=== PATIENT | female | born 1980 | race Caucasian/White ===

== ENCOUNTER 2019-08-12 16:38 | Inpatient (IN) | payer BC, OTHER ==
[2019-08-12] MEDS ORDERED: Lactated Ringers 1000 ML Bag* 1,000 ML IV ONE (17:03)
[2019-08-12] MEDS ORDERED: Dinoprostone* 10 MG VAG.SUPP VAGINAL ONE (17:03)
[2019-08-12] MEDS ORDERED: Buffered Lidocaine 1% SYRIN* 1 ML/SYRINGE INTRADERM ONE (17:03)
--- NOTE | 2019-08-12 17:33 | HP ---
General Information - Reason for Visit 37-week ripening/IOL for gestational hypertension - General Information Maternal Age: 38 Grav: 1 Para: 0 SAB: 0 IEA: 0 Estimated Due Date: 09/03/19 Determined By: LMP Gestational Age in Weeks/Days: 36 6/7 Maternal Blood Type and Rh: A Positive - Results this Serology/RPR Result: Non-Reactive Rubella Result: Immune HBsAg Result: Negative HIV Result: Negative GBS Culture Result: Negative Past Medical History Delivery History: See Records Delivery History Comment: no prior deliveries Pertinent Past Medical History: See Records Past Medical History Comment: depression/anxiety, hx skull fracture Pertinent Past Surgical History: See Records Past Surgical History Comment: wisdom tooth extraction, rhinoplasty Pertinent Family History: Non-Contributory - Antepartal Records Antepartal Records: Reviewed, Complicated by: - Age 38 at delivery, depression/anxiety on wellbutrin/lexapro, LSIL pap Review of Systems Constitutional: Comfortable CV Complaint: No Respiratory: Shortness of Breath: No Gastrointestinal: No Nausea/Vomiting, Normal Bowel Movement Genitourinary: No Dysuria, No Bleeding, No Leaking Fluid Musculoskeletal: Contractions, Abdominal Pain Neurological: No Headache, No Visual Changes Movement: Normal Exam Allergies/Adverse Reactions: Allergies No Known Allergies Allergy (Verified 08/09/19 09:36) B/P: 151/82, P: 98, R: 20, T: 98.1 - Measurements Height: 5 ft 2 in Weight: 156 lb Weight in lbs: [id number] Body Mass Index (BMI): 28.5 Pre- Weight: 130 lb Weight Gained This : 26 lbs and 0 ozs - Exam Breast: Breast Exam Deferred CVA: No CVA Tenderness Extremities: No Edema Heart: Normal Rhythm/Heart Sounds HEENT: No Significant Findings Lungs: Clear Bilaterally Reflexes: DTR 2+ Thyroid: No Thyromegaly - Abdominal Exam Abdomen Exam: Non-Tender, Fundal Height Consistent with Dates - Ultrasound/Biophysical Profile Ultrasound Status: Not Done Targeted Exam Findings See L&D Outpatient Visit Provider Note for Findings: N/A Estimated Weight: 6 lb by tana's Cervical Exam: Closed Presenting Part: Vertex Membrane Status: Intact Bleeding/Discharge: None EFM Findings - External Monitor Findings Baseline Heart Rate: 135 External Monitor Findings: Accelerations Present, No Pattern of Variable or Late Decelerations, Variability Moderate, Baseline Stable Contractions: Irregular, Mild, 45-90 Seconds Assessment/Plan - Assessment A: IUP at 36 6/7 weeks No evidence of metabolic acidemia GBS negative Gestational hypertension Unfavorable cervix P: Admit to inpatient PARQ discussion re: cervidil placement, Janet agrees Reviewed options for therapeutic rest Will draw CBC, CMP, uric acid and collect urine for UA B/Ps q2h while awake Reassess PRN Anticipate SVB - Obstetrical Risk Factors Obstetrical Risk Factors: Gestational Hypertension - Plan Plan: Cervical Ripening, Admit - Anticipate Vaginal Delivery - Date/Time of Admission Date of Admission: 08/12/19 Time of Admission: 17:30
[2019-08-12 17:45] LABS: ABS Lymphocytes 1.6 10^3/ul (1.0-4.8); ABS Monocytes 0.8 10^3/ul (0-0.8); ABS Neutrophils 6.7 10^3/ul (1.5-7.7); Eosinophil % 0.3 %; Hematocrit 30 % (35-47); Hemoglobin 10.5 g/dL (12.0-16.0); Lymphocyte % 17.6 %; Mean Corpuscular HGB Conc 35 g/dL (31-36); Mean Corpuscular Hemoglobin 30 pg (27-31); Mean Corpuscular Volume 86 fL (80-97); Mean Platelet Volume 7.6 fL (7.4-10.4); Platelet Count 410 10^3/uL (150-450); Red Blood Count 3.46 10^6 /uL (3.70-4.87); Red Cell Distribution Width 14 % (10-15); White Blood Count 9.3 10^3/uL (3.5-10.8)
[2019-08-12 17:50] LABS: Urine Appearance Cloudy; Urine Bilirubin Negative (Negative); Urine Blood Negative (Negative); Urine Color Yellow; Urine Glucose Negative (Negative); Urine Ketones Negative (Negative); Urine Nitrite Negative (Negative); Urine Protein Negative (Negative); Urine Specific Gravity 1.015 (1.010-1.030); Urine Urobilinogen Negative (Negative)
[2019-08-12 17:53] LABS: Urine Bacteria 1+ (Absent); Urine Red Blood Cell Absent (Absent); Urine Squamous Epithelial Cell Present (Absent); Urine White Blood Cell Trace(0-5/hpf) (Absent)
[2019-08-12] MEDS ORDERED: Lactated Ringers 1000 ML Bag* 1,000 ML IV SCH (18:00)
[2019-08-12 18:02] LABS: Albumin 3.3 g/dL (3.2-5.2); Albumin/Globulin Ratio 1.3 (1-3); BUN/Creatinine Ratio 13.6 (8-20); Calcium 8.4 mg/dL (8.6-10.3); EGFR African American 122.6 (>60); EGFR Non-African American 101.3 (>60); Globulin 2.6 g/dL (2-4); Potassium 3.2 mmol/L (3.5-5.0); Total Bilirubin 0.2 mg/dL (0.2-1.0); Total Protein 5.9 g/dL (6.4-8.9); Uric Acid 4.3 mg/dL (2.3-6.6)
[2019-08-12 18:04] LABS: Urine Benzodiazepine Screen None Detected (None Detect); Urine Opiates Screen None Detected (None Detect)
[2019-08-12] MEDS: Escitalopram * 20 MG TABLET PO SCH (18:17)
[2019-08-12] MEDS ORDERED: hydrOXYzine HCL TAB* 50 MG PO ONE (19:59)
[2019-08-12] MEDS ORDERED: Morphine 10 MG/ML VIAL (1 ml) IV ONE (23:30)
--- NOTE | 2019-08-12 23:36 | PN ---
Progress Note - Progress Note Date of Service: 08/12/19 Note: S: Feeling very crampy/uncomfortable. Having difficulty breathing/relaxing body with uterine cramping O: B/P: 138/83, P: 92, R: 20, T: 97.9 FHR: baseline 130, moderate variability, +accelerations, no decelerations UCs: irregular, palpate mild-moderate. VE deferred, cervidil in place x 5 hrs A: IUP at 36 6/7 weeks Category I FHR, no evidence of metabolic acidemia Gestational hypertension P: Recommend IV fluid bolus, Janet agrees Discussed further pain management options, will give morphine IV Reassess PRN Anticipate SVB
--- NOTE | 2019-08-13 08:30 | PN ---
Progress Note - Progress Note Date of Service: 08/13/19 Note: S: Assuming care of Janet Garcia a 38 year-old at 37-0/7 weeks here for induction of labor per MD/DO group in the context of gestational hypertension without pre-eclampsia. She is A+, RI, HIV/RPR/HepB negative. She was GBS negative. All of her labs 08/12/2019 at 1731 were normal with platelets 410 H/H 10.5/30 Uric acid 4.3 AST 15/ALT 11 BUN 9 Creat 0.66. She slept well overnight with Morphine and Vistaril. Still feeling a little groggy this morning. Denies MURRAY. No visual changes. No RUQ pain. Reports active FM. O: BP 153/89 HR 87 RR 20 T 97.4 FHT 125bpm. Moderate variability. +Accels. No decels UCs q 1.5-3cm, mild to palpation and described as menstrual like cramps per pt VE closed/long/vtx -2 A: IUP at 37-0/7 with gestational hypertension No evidence of metabolic acidemia Unfavorable for induction with Helton's Score of 1 P: Pt to eat breakfast, shower and go back on the monitor to assess UC pattern. Would benefit from another round of Cervical ripening with Cervidil vs. Misoprostol. Will re-eval in 1-2 hours to see if UC pattern allows for repeat ripening or sooner as needed
[2019-08-13] MEDS: BuPROPion XL* 150 MG TAB.XL PO SCH (09:23)
--- NOTE | 2019-08-13 10:53 | PN ---
Progress Note - Progress Note Date of Service: 08/13/19 Note: S: Pt resting comfortably in bad after breakfast and a shower. Continues to describe only mild cramping O: BP 140/79 HR 78 FHT 130bpm. Moderate variability. +Accels. No decels UCs q 1.5-3.5 min, palpate mild VE deferred A: IUP at 37-0/7 with gestational hypertension No evidence of metabolic acidemia P: Discussed options at this time including 1) expectant management in presence of regular UC pattern 2) Low dose pitocin to assist with cervical softening and 3) In presence of stable BP and labs expectant management with discharge home and plan to return in a day or 2 to continue with induction. Pros/cons, risk/ benefits reviewed and all questions answered. At this time pt with strong preference to remain here and continue induction. Doesn't like the idea of "doing nothing" so requests trial of low dose pitocin for ripening purposes. Order input.
[2019-08-13] MEDS ORDERED: Oxytocin in LR* 20 UNITS/1,000 ML BAG IVPB SCH (11:00)
[2019-08-13] MEDS ORDERED: diPHENhydraMINE LIQ* 12.5 MG/5 ML UDC PO ONE (20:18)
--- NOTE | 2019-08-13 20:29 | PN ---
Progress Note - Progress Note Date of Service: 08/13/19 Note: S: Pt resting comfortably in bed. Was able to nap intermittently throughout the day. Describes menstrual like cramping that is more concentrated in her lower back. Has been on low dose IV pitocin for the last 9 hours for ripening purposes. Max dose was 7mu/min (increasing at a rate of 1mu/min). Denies LOF. No VB. Reports active FM. No MURRAY. No visual changes. No RUQ pain O: BP 140/86 HR 97 T 98.4 SpO2 98% on RA FHT 145bpm. Moderate variability. +Accels. No decels UCs q 2-5 min x 50-70 sec, palpate mild VE deferred A: IUP at 37-0/7 with gestational hypertension No evidence of metabolic acidemia P: Discussed stopping the IV pitocin and encouraging rest overnight. Given unfavorable cervix at the start of the day anticipate a long induction process and counseled for the importance of sleep as well as a rest from medications. If onset labor overnight will actively manage. Otherwise pt requests mild sleep aid and likes the idea of rest. Will check vitals and FHT overnight only while pt awake. Plan to re-check cervix and continue induction in AM unless labor starts before. PEC precautions reviewed/when to notify RN of changes.
[2019-08-13] MEDS: Escitalopram * 20 MG TABLET PO SCH (21:59)
[2019-08-13] MEDS: diPHENhydraMINE PO* 50 MG PO PRN (22:00)
--- NOTE | 2019-08-14 08:45 | PN ---
Progress Note - Progress Note Date of Service: 08/14/19 Note: S: Pt resting comfortably in bed. Was able to sleep with benadryl overnight. Mild menstrual like cramping this morning. Previous ripening included: low dose IV pitocin (9 hours), max dose was 7mu. Denies LOF. No VB. Reports active FM. No MURRAY. No visual changes. No RUQ pain. O: BP 148/79 HR 82 T 98.2 SpO2 98% on RA FHT 145bpm. Moderate variability. +Accels. No decels UCs occasional contraction, irritability VE deferred A: IUP at 37-1/7 with gestational hypertension No s/sx of PEC; PEC labs WNL Not in active labor No evidence of metabolic acidemia P: Given unfavorable cervix, PARQ discussion about ripening options. Agrees to misoprostol. FHT per protocol VE prn
[2019-08-14] MEDS: Misoprostol TAB* 100 MCG PO SCH ×4 (09:18→22:50)
[2019-08-14] MEDS: BuPROPion XL* 150 MG TAB.XL PO SCH (09:18)
--- NOTE | 2019-08-14 16:35 | PN ---
Progress Note - Progress Note Date of Service: 08/14/19 Note: S: Pt resting in bed. Becoming more uncomfortable. Contractions and menstrual like cramping becoming more intense. Denies LOF. No VB. Reports active FM. No MURRAY. No visual changes. No RUQ pain. Thus far, ripening completed: cervidil, low dose IV pitocin (9 hours; max dose was 7mu), misoprostol x1 (50mcg) O: BP 142/77, HR 83 T 98.1 FHT 130bpm. Moderate variability. +Accels. No decels UCs occasional contraction, irritability VE: closed and thick A: IUP at 37-1/7 with gestational hypertension No s/sx of PEC; PEC labs WNL Not in active labor No evidence of metabolic acidemia P: Will continue with misoprostol as tolerated by pt and fetus
[2019-08-14] MEDS: Escitalopram * 20 MG TABLET PO SCH (20:54)
[2019-08-14] MEDS ORDERED: Morphine 10 MG/ML VIAL (1 ml) IV ONE (20:55)
[2019-08-14] MEDS ORDERED: Dinoprostone* 10 MG VAG.SUPP VAGINAL ONE (20:55)
--- NOTE | 2019-08-14 21:47 | PN ---
Progress Note - Progress Note Date of Service: 08/14/19 Note: S: Pt resting in bed. Feeling menstrual-like cramps. Denies LOF. No VB. Reports active FM. No MURRAY. No visual changes. No RUQ pain. Thus far, ripening completed: cervidil, low dose IV pitocin (9 hours; max dose was 7mu), misoprostol x2 (50mcg) O: BP: 144/76, HR 96 T 98.4 FHT: 130bpm. Moderate variability. +Accels. No decels UCs: occasional contraction with uterine irritability VE: dimple A: IUP at 37-1/7 with gestational hypertension No s/sx of PEC; PEC labs WNL Not in active labor No evidence of metabolic acidemia P: Discussion with pt about plan overnight. Pt desires continuing with ripening. PARQ discussion about repeating cervidil. Pt in agreement with plan. Benadryl for sleep and morphine for pain, as needed
[2019-08-14] MEDS: Calcium Carbonate CHEW TAB* 500 MG (TUMS) PO PRN (22:38)
[2019-08-15] MEDS ORDERED: Morphine 10 MG/ML VIAL (1 ml) IV ONE (00:52)
[2019-08-15] MEDS: diPHENhydraMINE PO* 50 MG PO PRN (01:02)
[2019-08-15] MEDS: Misoprostol TAB* 100 MCG PO SCH ×2 (02:34→06:13)
[2019-08-15] MEDS: Lactated Ringers 1000 ML Bag* 1,000 ML IV SCH ×3 (03:36→14:48)
--- NOTE | 2019-08-15 03:40 | PN ---
Progress Note - Progress Note Date of Service: 08/15/19 Note: S: Pt unable to rest. Feeling menstrual-like cramps/contractions. S/p morphine 10mg and Benadryl 50mg. Denies LOF. No VB. Reports active FM. No MURRAY. No visual changes. No RUQ pain. Thus far, ripening completed: cervidil, low dose IV pitocin (9 hours; max dose was 7mu), misoprostol x2 (50mcg), cervidil (removed after 2 hours) O: BP: 133/75, HR 96 T 98.4 FHT: 130bpm (auscultation) UCs: uterine irritability, contractions every 3-5 VE: dimple/50% A: IUP at 37-2/7 with gestational hypertension No s/sx of PEC; PEC labs WNL Not in active labor No evidence of metabolic acidemia P: Plan for LR 500 mL bolus Encouraged pt to get back in tub, pt would like to try to sleep Anticipate progression to active labor
--- NOTE | 2019-08-15 06:44 | PN ---
Progress Note - Progress Note Date of Service: 08/15/19 Note: Notified by RN of increase in patient's BP, 157/91. Pt also reports alteration in vision. No substantive sleep overnight. Pt in the tub right now. Will repeat PEC labs NICOLE Monitor BP closely
[2019-08-15 07:40] LABS: ABS Basophils 0.1 10^3/ul (0-0.2); ABS Lymphocytes 1.6 10^3/ul (1.0-4.8); ABS Monocytes 0.6 10^3/ul (0-0.8); ABS Neutrophils 14.9 10^3/ul (1.5-7.7); Hematocrit 35 % (35-47); Hemoglobin 11.7 g/dL (12.0-16.0); Lymphocyte % 9.3 %; Mean Corpuscular HGB Conc 34 g/dL (31-36); Mean Corpuscular Hemoglobin 29 pg (27-31); Mean Corpuscular Volume 86 fL (80-97); Mean Platelet Volume 7.7 fL (7.4-10.4); Platelet Count 454 10^3/uL (150-450); Red Blood Count 4.06 10^6 /uL (3.70-4.87); Red Cell Distribution Width 14 % (10-15); White Blood Count 17.1 10^3/uL (3.5-10.8)
[2019-08-15 07:57] LABS: Albumin 3.6 g/dL (3.2-5.2); Albumin/Globulin Ratio 1.1 (1-3); BUN/Creatinine Ratio 8.5 (8-20); Calcium 8.6 mg/dL (8.6-10.3); EGFR African American 112.7 (>60); EGFR Non-African American 93.1 (>60); Globulin 3.2 g/dL (2-4); Potassium 3.8 mmol/L (3.5-5.0); Total Bilirubin 0.3 mg/dL (0.2-1.0); Total Protein 6.8 g/dL (6.4-8.9); Uric Acid 4.4 mg/dL (2.3-6.6)
--- NOTE | 2019-08-15 08:19 | PN ---
Progress Note - Progress Note Date of Service: 08/15/19 Note: Pt with BP 160s/90. PEC serum values WNL Consult with KEG, call if 160/110 or abnormal PEC labs - will then transfer care to [facility] [place]. Monitor for now. Pt with no pain relief. Epidural now.
[2019-08-15] MEDS ORDERED: OBEPIDURAL* 250 ML EPIDURAL ONE (08:22)
[2019-08-15] MEDS: BuPROPion XL* 150 MG TAB.XL PO SCH (08:45)
[2019-08-15 09:00] LABS: Ur Mic-albumin/Creat Obstetric 41.1; Urine Creatinine Obstetric 102.09 mg/dL
[2019-08-15] MEDS ORDERED: Lidocaine 2% w/ EPI 1:200,000* 20 ML SDV VIAL ONE (09:39)
[2019-08-15] MEDS: Phenylephrine 40 MCG/ML SYRINGE IV PUSH PRN ×5 (10:00→11:11)
[2019-08-15] MEDS ORDERED: Cholecalciferol TAB* 1000 UNITS PO SCH (11:00)
[2019-08-15] MEDS ORDERED: Ferrous Gluconate TAB* 324 MG TAB PO SCH (11:00)
[2019-08-15] MEDS ORDERED: Sodium Citrate/Citric Acid* 15 ML UDC PO PRN (11:26)
[2019-08-15] MEDS ORDERED: Lactated Ringers 1000 ML Bag* 1,000 ML IV ONE (11:26)
[2019-08-15] MEDS ORDERED: Phenylephrine 40 MCG/ML SYRINGE IV PUSH PRN ×3 (11:26→11:36)
[2019-08-15] MEDS ORDERED: Lactated Ringers 1000 ML Bag* 500 ML IV PRN ×2 (11:26)
[2019-08-15] MEDS ORDERED: Famotidine TAB* 20 MG PO PRN (11:26)
[2019-08-15] MEDS ORDERED: Lactated Ringers 1000 ML Bag* 1,000 ML IV SCH ×2 (12:00)
[2019-08-15] MEDS ORDERED: OBEPIDURAL* 250 ML EPIDURAL SCH (12:00)
--- NOTE | 2019-08-15 13:14 | PN ---
Progress Note - Progress Note Date of Service: 08/15/19 Note: S: Resting in bed. comfortable s/p CEI placement. Has been using O2 on and off after FHR decelerations. Has received many doses of phenylephrine for low B /Ps after CEI O: B/P: 113/57, P: 95, R: 17, T: 98.2 FHR: baseline 140, minimal variability, no accelerations, no decelerations for the past hour UCs: q 7-9, moderate to palpation VE: 4/100/-1, clear fluid. AROM by Dr. Neal at 1055 A: IUP at 37 2/7 weeks Category II FHR, doubt metabolic acidemia. Suspect FHR pattern related to poor uterine perfusion r/t low maternal blood pressures GBS negative Early labor P: Continue position changes to promote oxygenation. Consider augmentation with pitocin if FHR returns to Category I FHR Dr. Neal in-house and aware of plan Reassess PRN Anticipate SVB
[2019-08-15] MEDS ORDERED: Oxytocin in LR* 20 UNITS/1,000 ML BAG IVPB SCH ×2 (15:00→23:30)
--- NOTE | 2019-08-15 15:42 | PN ---
Progress Note - Progress Note Date of Service: 08/15/19 Note: S: Reports increased pain with UCs. Pain described as sharp, near her cervix. O: B/P: 123/63, P: 89, R: 19, T: 98.2 FHR: baseline 125, moderate variability, + accelerations, occasional decelerations UCs: q 2-6 min, moderate VE: 4/100/-1. Copious amounts clear fluid Pitocin at 4 mu/min A: IUP at 37 2/7 weeks Category II FHR, doubt metabolic acidemia Early labor P: Offered benaryl or vistaril for relaxation, Janet declines for now Suggested we could position her upright and try pushing epidural button a few times, Janet declines for now Recommend waiting until advanced dilation to attempt epidural bolus Reassess PRN Continue position changes to promote oxygenation Anticipate SVB
--- NOTE | 2019-08-15 17:32 | PN ---
Progress Note - Progress Note Date of Service: 08/15/19 Note: S: Reports continued increase in pain. Vocalizing with contractions. Reports some heartburn O: B/P: 154/90, P: 89, T: 98.7 FHR: baseline 125, minimal variability, +accelerations, occasional variable decelerations UCs: q 2-7 min, moderate. Lasting 1-2 mins. VE: 4.5/100/-1, clear fluid Pitocin at 6 mu/min SROM x 6.5 hrs A: IUP at 37 2/7 weeks Category II FHR, doubt metabolic acidemia Prolonged latent phase of labor P: Dr. Babs henson, will come down to bolus epidural Blood pressure management with epidural bolus Place IUPC after epidural bolus Titrate pitocin per protocol Reassess PRN Anticipate SVB
[2019-08-15] MEDS ORDERED: Bupivacaine 0.25% SDV PF* 10 ML VIAL INJ ONE (18:20)
[2019-08-15] MEDS ORDERED: Lidocaine 2% PF* 10 ML AMP ONE (18:20)
--- NOTE | 2019-08-15 19:36 | PN ---
Progress Note - Progress Note Date of Service: 08/15/19 Note: S: Still uncomfortable. Has received two epidural boluses. O: B/P: 138/75, P: 115, T: 98.7 FHR: baseline 135, moderate variability, +accelerations, occasional variable deceleration UCs: q3-5 min, moderate. IUPC placed. VE: 5/100/-1. Clear to pink fluid SROM x 8.5 hrs A: IUP at 37 2/7 weeks Category II FHR, doubt metabolic acidemia Active Labor P: Janet requesting . Discussed attempting another epidural placement prior to choosing this route Dr. Brice pagebo and en route Reassess after epidural placement Anticipate SVB
[2019-08-16] MEDS ORDERED: Witch Hazel PAD* JAR TOPICAL PRN (00:05)
[2019-08-16] MEDS ORDERED: Glycerin ADULT SUPP PR PRN (00:05)
[2019-08-16] MEDS ORDERED: Dibucaine 1% 28.35 GM TUBE PR PRN (00:05)
--- NOTE | 2019-08-16 00:27 | PROCNOTE ---
[facility] OB: Delivery Note - Delivery A Date of : 08/15/19 Time of : 23:24 [place] Sex: Female Weight at : 6 lb 13.349 oz Gestational Age in Weeks and Days at Delivery: 37 Weeks and 2 Days Delivery Method: Spontaneous Vaginal Labor: Induced Did Patient attempt ?: N/A, No Previous Amniotic Fluid: Clear Estimated Blood Loss: 400 Anesthesia/Analgesia: CEI for Labor - placed by Dr. Graves. Second Epidural by Dr. Brice Anesthesia Comment: Babs Graves Delivered By: Jeanne Ibrahim - Nursery Level of Nursery: NICU - Perineum Perineal Injury: Vaginal Laceration, 1st Degree Perineal Injury Comment: repaired under lidocaine infiltration with 3-0 vicryl Perineal Repair: By Delivering Practioner - Events Delivery Events of Note: Pitocin During Labor, Supplemental O2 to Mother - Additional Delivery Notes Additional Delivery Notes: with 37 week induction for gestational hypertension. Cervidil, misoprostol , AROM to clear fluid and pitocin lead to active labor. Began pushing at 2207 with good maternal effort. Category II FHR during second stage, Dr. Neal at bedside to assist. Slow, controlled delivery of head OA to ROGERIO, shoulders followed easily with next push. Female infant delivered to maternal abdomen, dried and stimulated, stunned. Cord doubly clamped and cut, to warmer for PPV. Pitocin increased to 250 cc for active management of third stage, intact placenta delivered via rylie at 2336. Fundus firm with massage. Vagina and perineum carefully inspected, first degree vaginal laceration noted , repair as above. Infant to NICU for observation, mother stable at time of note. Feeding plan is breast. EBL = 400.
[2019-08-16] MEDS: Escitalopram * 20 MG TABLET PO SCH ×2 (00:45→20:47)
[2019-08-16] MEDS: Ibuprofen TAB* 600 MG PO SCH ×4 (00:45→20:47)
[2019-08-16] MEDS ORDERED: Lactated Ringers 1000 ML Bag* 1,000 ML IV SCH (01:00)
[2019-08-16] MEDS ORDERED: Lidocaine 1% INJ* 10 MG/ML 30 ML SDV ONE (04:05)
[2019-08-16] MEDS: Docusate CAP* 100 MG PO SCH ×3 (08:16→20:47)
[2019-08-16] MEDS: BuPROPion XL* 150 MG TAB.XL PO SCH (08:16)
[2019-08-16] MEDS ORDERED: Simethicone TAB* 80 MG TAB.CHEW PO SCH (08:30)
[2019-08-16] MEDS: Acetaminophen TAB* 325 MG PO PRN ×3 (11:16→20:01)
[2019-08-16] MEDS: Calcium Carbonate CHEW TAB* 500 MG (TUMS) PO PRN (14:39)
[2019-08-17] MEDS: Ibuprofen TAB* 600 MG PO SCH ×3 (07:20→14:38)
[2019-08-17] MEDS: BuPROPion XL* 150 MG TAB.XL PO SCH (07:21)
[2019-08-17] MEDS: Acetaminophen TAB* 325 MG PO PRN ×2 (07:21→14:39)
[2019-08-17] MEDS: Docusate CAP* 100 MG PO SCH ×2 (07:21→14:38)
[2019-08-17 07:41] LABS: ABS Basophils 0.1 10^3/ul (0-0.2); ABS Eosinophils 0.1 10^3/ul (0-0.6); ABS Lymphocytes 3.3 10^3/ul (1.0-4.8); ABS Monocytes 1.4 10^3/ul (0-0.8); ABS Neutrophils 10.7 10^3/ul (1.5-7.7); Eosinophil % 0.4 %; Hematocrit 28 % (35-47); Hemoglobin 9.6 g/dL (12.0-16.0); Lymphocyte % 21.2 %; Mean Corpuscular HGB Conc 34 g/dL (31-36); Mean Corpuscular Hemoglobin 29 pg (27-31); Mean Corpuscular Volume 87 fL (80-97); Mean Platelet Volume 7.6 fL (7.4-10.4); Platelet Count 392 10^3/uL (150-450); Red Blood Count 3.25 10^6 /uL (3.70-4.87); Red Cell Distribution Width 14 % (10-15); White Blood Count 15.6 10^3/uL (3.5-10.8)
[2019-08-17 08:54] VITALS: BP 138/76
[2019-08-17] MEDS ORDERED: Ferrous Gluconate TAB* 324 MG TAB PO SCH ×2 (09:00)
[2019-08-17] MEDS: Calcium Carbonate CHEW TAB* 500 MG (TUMS) PO PRN (11:28)
--- NOTE | 2019-08-17 11:36 | PTEDU ---
Patient Name: BRITTANY SANCHEZ BRTITANY SANCHEZ selected video: Follow Me Mum: [facility] [employer] [facility] to view on 020 at 11:34:23 AM [id number]
== END 2019-08-17 15:10 | disposition home or self-care (01) | DRG 560 ==
LOC: MCHOBOUT 16:38 → MCHOB 17:24
PROVIDERS: ADMIT Midwife; ATTEND Midwife
PROC: 10E0XZZ Delivery of Products of Conception, External Approach (ICD-10-PCS; principal; 2019-08-15)
PROC: 3E033VJ Introduction of Other Hormone into Peripheral Vein, Percutaneous Approach (ICD-10-PCS; 2019-08-15)
PROC: 10907ZC Drainage of Amniotic Fluid, Therapeutic from Products of Conception, Via Natural or Artificial Opening (ICD-10-PCS; 2019-08-15)
PROC: 0HQ9XZZ Repair Perineum Skin, External Approach (ICD-10-PCS; 2019-08-15)
DX: O13.4 Gestational [pregnancy-induced] hypertension without significant proteinuria, complicating childbirth (principal); Z37.0 Single live birth; O99.344 Other mental disorders complicating childbirth; F41.8 Other specified anxiety disorders; O76 Abnormality in fetal heart rate and rhythm complicating labor and delivery; O71.4 Obstetric high vaginal laceration alone; O90.81 Anemia of the puerperium; D64.9 Anemia, unspecified; Z3A.37 37 weeks gestation of pregnancy
CPT/HCPCS: 36415; 59200; 80053; 80307; 81003; 81015; 82043; 82570; 84550; 85025; 86850; 86900; 86901; 87086; A9270-GY; G0480; J2001; J2270; J3490; S0191